=== PATIENT | female | born 1940 | race Caucasian/White ===

== ENCOUNTER 2023-05-29 10:14 | Emergency (ER) | payer MEDICARE ==
[~2023-05-29] VITALS: Ht 160 cm; Wt 87.1 kg
[2023-05-29] MEDS ORDERED: METO100T5 PO (10:24)
[2023-05-29] MEDS ORDERED: NORV5TAB PO (10:24)
[2023-05-29] MEDS ORDERED: AMLO25TA PO (10:25)
[2023-05-29] MEDS ORDERED: LISI20TA37 PO (10:25)
[2023-05-29] MEDS ORDERED: ISOVUE-370 76% 100ML VIAL As Ordered ONE (14:07)
[2023-05-29] MEDS: DIAPER RELIEF PASTE (DESITIN) 60GM TOP SCH (14:15)
[2023-05-29] MEDS ORDERED: D-101000 PO (14:17)
[2023-05-29] MEDS ORDERED: CALC600T60 PO (14:17)
[2023-05-29] MEDS ORDERED: HOME MED LIST COMPLETE! XX SCH (14:20)
[2023-05-29 14:26] LABS: BASO # 0.1 10^3/uL (0.0-0.2); BASO % 0.4 % (0.0-1.0); EOS # 0.1 10^3/uL (0.0-0.5); EOS % 0.7 % (0.0-3.0); HEMATOCRIT 38.2 % (36.0-47.0); HEMOGLOBIN 12.7 g/dl (12.0-15.5); LYMPH # 3.3 10^3/uL (1.5-5.0); LYMPH % 26.7 % (24.0-44.0); MEAN CORPUSCULAR HEMOGLOBIN 29.5 pg (27.0-33.0); MEAN CORPUSCULAR HGB CONC 33.2 g/dl (32.0-36.5); MEAN CORPUSCULAR VOLUME 88.8 fl (80.0-96.0); MONO # 0.8 10^3/uL (0.0-0.8); MONO % 6.6 % (2.0-8.0); NEUTROPHILS % 64.9 % (36.0-66.0); PLATELET COUNT, AUTOMATED 433 10^3/uL (150-450); WHITE BLOOD COUNT 12.3 10^3/uL (4.0-10.0)
[2023-05-29 14:55] LABS: ALBUMIN 3.2 G/DL (3.2-5.2); BILIRUBIN,TOTAL 0.5 MG/DL (0.3-1.2); CALCIUM LEVEL 9.1 MG/DL (8.3-10.6); CREATININE FOR GFR 1.42 MG/DL (0.55-1.30); GLOMERULAR FILTRATION RATE 37.9 (>32); POTASSIUM SERUM 4.5 MMOL/L (3.5-5.1); TOTAL PROTEIN 6.8 G/DL (5.7-8.2)
[2023-05-29] MEDS ORDERED: METR-265 PO (16:09)
[2023-05-29] MEDS ORDERED: CIPR-249 PO (16:09)
[2023-05-29 16:23] VITALS: BP 176/74; TEMP 97.8; O2SAT 96
== END 2023-05-29 16:33 | disposition home or self-care (01) ==
LOC: M ED 10:14
DX: K61.0 Anal abscess (principal); I10 Essential (primary) hypertension
CPT/HCPCS: 74177; 80047; 80053; 85025; 99284; Q9967

== ENCOUNTER 2023-06-05 12:53 | Day surgery (SDC) | payer MEDICARE ==
[~2023-06-05] VITALS: Ht 160 cm; Wt 84.8 kg
[~2023-06-05 12:53] MED LIST: AMLO25TA PO; CALC600T60 PO; CIPR-249 PO; CIPR500T39 PO; D-101000 PO; LISI20TA37 PO; METO100T5 PO; METR-265 PO; NORV5TAB PO; PRAV20TA2 PO
[2023-06-05] MEDS: NS 1,000 ML IV ONE (14:09)
[2023-06-05] MEDS ORDERED: MIDAZOLAM INJ 2MG/2ML VIAL As Ordered ONE (14:43)
[2023-06-05 14:52] VITALS: TEMP 98.5
[2023-06-05 15:11] VITALS: BP 137/68; O2SAT 96
[2023-06-05] MEDS ORDERED: METO1TAB33 PO (21:54)
[2023-06-05] MEDS ORDERED: CALC500T61 PO (21:54)
== END 2023-06-05 15:21 | disposition other institution (70) ==
LOC: M OPP 12:53
PROVIDERS: ATTEND Surgery
DX: K62.89 Other specified diseases of anus and rectum (principal); E86.0 Dehydration; Z79.899 Other long term (current) drug therapy; Z79.2 Long term (current) use of antibiotics

== ENCOUNTER 2023-06-05 15:33 | Inpatient (IN) | payer MEDICARE ==
[~2023-06-05] VITALS: Ht 160 cm; Wt 92.7 kg
[2023-06-05 18:20] LABS: BASO # 0.1 10^3/uL (0.0-0.2); BASO % 0.5 % (0.0-1.0); EOS # 0.1 10^3/uL (0.0-0.5); EOS % 0.8 % (0.0-3.0); HEMATOCRIT 40.8 % (36.0-47.0); HEMOGLOBIN 13.6 g/dl (12.0-15.5); LYMPH # 2.4 10^3/uL (1.5-5.0); LYMPH % 18.6 % (24.0-44.0); MEAN CORPUSCULAR HEMOGLOBIN 29.1 pg (27.0-33.0); MEAN CORPUSCULAR HGB CONC 33.3 g/dl (32.0-36.5); MEAN CORPUSCULAR VOLUME 87.2 fl (80.0-96.0); MONO % 8.2 % (2.0-8.0); NEUTROPHILS % 71.2 % (36.0-66.0); PLATELET COUNT, AUTOMATED 456 10^3/uL (150-450); RED BLOOD COUNT 4.68 10^6/uL (4.00-5.40); WHITE BLOOD COUNT 12.6 10^3/uL (4.0-10.0)
[2023-06-05] MEDS: NS 1,000 ML IV ONE (18:22)
[2023-06-05 19:23] LABS: LIPASE 33 U/L (12-53)
[2023-06-05 19:25] LABS: CPK CREATINE PHOSPHOKINASE 32 U/L (34-145)
[2023-06-05 19:29] LABS: ALBUMIN 2.9 G/DL (3.2-5.2); ALKALINE PHOSPHATASE 43 U/L (46-116); ALT/SGPT 19 U/L (7.0-40); AST/SGOT 19 U/L (<34); BILIRUBIN,DIRECT 0.1 MG/DL (<0.4); BILIRUBIN,TOTAL 0.3 MG/DL (0.3-1.2); BLOOD UREA NITROGEN 41 MG/DL (9-23); CALCIUM LEVEL 8.2 MG/DL (8.3-10.6); CARBON DIOXIDE LEVEL 20 MMOL/L (20-31); CHLORIDE LEVEL 105 MMOL/L (98-107); CK-MB VALUE MASS < 1.0 NG/ML (<3.6); CREATININE FOR GFR 3.54 MG/DL (0.55-1.30); FREE T4 1.16 NG/DL (0.89-1.76); GLOMERULAR FILTRATION RATE 13.2 (>32); GLUCOSE, FASTING 110 MG/DL (74-106); MB/CK RELATIVE INDEX 3.12 (< OR =4); POTASSIUM SERUM 4.2 MMOL/L (3.5-5.1); SODIUM LEVEL 135 MMOL/L (136-145); THYROID STIMULATING HORMONE 4.785 uIU/ML (0.55-4.78); TOTAL PROTEIN 5.8 G/DL (5.7-8.2)
[2023-06-05] MEDS: NS 500 ML IV ONE (20:54)
[2023-06-05] MEDS ORDERED: LR 1,000 ML IV SCH (21:40)
[2023-06-05] MEDS ORDERED: CALC500T61 PO (21:54)
[2023-06-05] MEDS ORDERED: METO1TAB33 PO (21:54)
[2023-06-05] MEDS ORDERED: HOME MED LIST COMPLETE! XX SCH (21:55)
[2023-06-05 23:00] VITALS: BP 155/83; TEMP 98.1; O2SAT 97
[2023-06-06 06:33] VITALS: BP 143/62; TEMP 98.8; O2SAT 96
[2023-06-06 07:37] LABS: BASO # 0.1 10^3/uL (0.0-0.2); BASO % 0.5 % (0.0-1.0); EOS # 0.4 10^3/uL (0.0-0.5); EOS % 2.8 % (0.0-3.0); HEMATOCRIT 39.7 % (36.0-47.0); HEMOGLOBIN 13.1 g/dl (12.0-15.5); LYMPH # 3.9 10^3/uL (1.5-5.0); LYMPH % 25.5 % (24.0-44.0); MEAN CORPUSCULAR HEMOGLOBIN 29.1 pg (27.0-33.0); MEAN CORPUSCULAR VOLUME 88.2 fl (80.0-96.0); MONO # 1.4 10^3/uL (0.0-0.8); MONO % 9.3 % (2.0-8.0); NEUTROPHILS # 9.4 10^3/uL (1.5-8.5); NEUTROPHILS % 61.2 % (36.0-66.0); PLATELET COUNT, AUTOMATED 487 10^3/uL (150-450); WHITE BLOOD COUNT 15.4 10^3/uL (4.0-10.0)
[2023-06-06 07:59] LABS: ALBUMIN 3.1 G/DL (3.2-5.2); BILIRUBIN,TOTAL 0.3 MG/DL (0.3-1.2); CALCIUM LEVEL 9.1 MG/DL (8.3-10.6); CREATININE FOR GFR 3.41 MG/DL (0.55-1.30); GLOMERULAR FILTRATION RATE 13.8 (>32); POTASSIUM SERUM 4.8 MMOL/L (3.5-5.1)
[2023-06-06] MEDS: LACTOBACILLUS ACIDOPHILUS CAP (BACID) PO SCH (08:00)
[2023-06-06] MEDS: LR 1,000 ML IV SCH (08:18)
[2023-06-06 10:35] LABS: PROCALCITONIN 0.16 ng/ml
[2023-06-06 14:00] VITALS: BP 135/72; TEMP 98.1; O2SAT 96
[2023-06-06 19:23] VITALS: BP 163/76; TEMP 98.1; O2SAT 97
[2023-06-06] MEDS: METOPROLOL SUCC (TopROL XL) 100MG *XL* TAB PO SCH (20:43)
[2023-06-06] MEDS: amLODIPine 5 MG TAB PO SCH (20:43)
[2023-06-07 05:10] VITALS: BP 138/61; TEMP 98.6; O2SAT 95
[2023-06-07 07:17] LABS: BASO # 0.1 10^3/uL (0.0-0.2); BASO % 0.7 % (0.0-1.0); EOS # 0.4 10^3/uL (0.0-0.5); EOS % 5.2 % (0.0-3.0); HEMATOCRIT 33.4 % (36.0-47.0); LYMPH # 1.9 10^3/uL (1.5-5.0); LYMPH % 23.8 % (24.0-44.0); MEAN CORPUSCULAR HEMOGLOBIN 29.3 pg (27.0-33.0); MEAN CORPUSCULAR HGB CONC 33.2 g/dl (32.0-36.5); MEAN CORPUSCULAR VOLUME 88.1 fl (80.0-96.0); MONO # 0.8 10^3/uL (0.0-0.8); NEUTROPHILS # 4.8 10^3/uL (1.5-8.5); NEUTROPHILS % 59.4 % (36.0-66.0); RED BLOOD COUNT 3.79 10^6/uL (4.00-5.40); WHITE BLOOD COUNT 8.1 10^3/uL (4.0-10.0)
[2023-06-07 07:20] LABS: HEMOGLOBIN 11.1 g/dl (12.0-15.5); PLATELET COUNT, AUTOMATED 327 10^3/uL (150-450)
[2023-06-07 07:47] LABS: CALCIUM LEVEL 8.2 MG/DL (8.3-10.6); CREATININE FOR GFR 2.82 MG/DL (0.55-1.30); GLOMERULAR FILTRATION RATE 17.2 (>32); POTASSIUM SERUM 3.7 MMOL/L (3.5-5.1)
[2023-06-07] MEDS: DIAPER RELIEF PASTE (DESITIN) 60GM TOP SCH (10:06)
[2023-06-07 15:15] VITALS: BP 156/83; TEMP 98.6; O2SAT 96
[2023-06-07 22:00] VITALS: BP 156/74; TEMP 98.2; O2SAT 96
[2023-06-08 05:44] VITALS: BP 130/53; TEMP 98.1; O2SAT 97
[2023-06-08 07:25] LABS: BASO # 0.1 10^3/uL (0.0-0.2); BASO % 0.7 % (0.0-1.0); EOS # 0.4 10^3/uL (0.0-0.5); HEMATOCRIT 35.5 % (36.0-47.0); HEMOGLOBIN 11.7 g/dl (12.0-15.5); LYMPH # 3.4 10^3/uL (1.5-5.0); LYMPH % 32.9 % (24.0-44.0); MEAN CORPUSCULAR HEMOGLOBIN 28.9 pg (27.0-33.0); MEAN CORPUSCULAR VOLUME 87.7 fl (80.0-96.0); MONO # 0.9 10^3/uL (0.0-0.8); MONO % 8.9 % (2.0-8.0); NEUTROPHILS # 5.5 10^3/uL (1.5-8.5); NEUTROPHILS % 52.6 % (36.0-66.0); PLATELET COUNT, AUTOMATED 329 10^3/uL (150-450); RED BLOOD COUNT 4.05 10^6/uL (4.00-5.40); WHITE BLOOD COUNT 10.4 10^3/uL (4.0-10.0)
[2023-06-08 07:47] LABS: CALCIUM LEVEL 8.4 MG/DL (8.3-10.6); CREATININE FOR GFR 2.37 MG/DL (0.55-1.30); POTASSIUM SERUM 4.1 MMOL/L (3.5-5.1)
[2023-06-08 14:00] VITALS: BP 154/85; TEMP 98.1; O2SAT 96
[2023-06-08 20:30] VITALS: BP 143/68
[2023-06-08 22:00] VITALS: BP 143/68; TEMP 98.6; O2SAT 97
[2023-06-09 05:42] VITALS: BP 118/59; TEMP 98.4; O2SAT 96
[2023-06-09 08:01] LABS: CALCIUM LEVEL 8.1 MG/DL (8.3-10.6); CREATININE FOR GFR 2.13 MG/DL (0.55-1.30); GLOMERULAR FILTRATION RATE 23.7 (>32); POTASSIUM SERUM 3.9 MMOL/L (3.5-5.1)
== END 2023-06-09 14:35 | disposition home health service (06) | DRG 683 ==
LOC: M ED 15:33 → OBSVTOIN 15:34 → M ED INP 15:34 → ENRESERV 22:30 → M MS5PR 22:50
PROVIDERS: ADMIT Internal Medicine; ATTEND Internal Medicine
DX: N17.9 Acute kidney failure, unspecified (principal); K61.1 Rectal abscess; K62.5 Hemorrhage of anus and rectum; E86.0 Dehydration; N18.9 Chronic kidney disease, unspecified; R19.7 Diarrhea, unspecified; I95.1 Orthostatic hypotension; I12.9 Hypertensive chronic kidney disease with stage 1 through stage 4 chronic kidney disease, or unspecified chronic kidney disease; M19.90 Unspecified osteoarthritis, unspecified site; Z79.899 Other long term (current) drug therapy; Z79.2 Long term (current) use of antibiotics; Z11.52 Encounter for screening for COVID-19

== ENCOUNTER 2023-06-14 13:08 | Day surgery (SDC) | payer MEDICARE, MEDICAID ==
[~2023-06-14] VITALS: Ht 160 cm; Wt 83.5 kg
[~2023-06-14 13:08] MED LIST changes: +CALC500T61 PO; +METO1TAB33 PO; +PROB250C PO
[2023-06-14] MEDS ORDERED: MIDAZOLAM INJ 2MG/2ML VIAL As Ordered ONE (13:24)
[2023-06-14] MEDS: NS 1,000 ML IV ONE (13:26)
[2023-06-14 13:42] VITALS: TEMP 98.5
[2023-06-14 13:59] VITALS: BP 154/68; O2SAT 96
== END 2023-06-14 14:11 | disposition home or self-care (01) ==
LOC: M OPP 13:08
PROVIDERS: ATTEND Surgery
DX: K62.89 Other specified diseases of anus and rectum (principal); K56.690 Other partial intestinal obstruction; D49.0 Neoplasm of unspecified behavior of digestive system; Z80.0 Family history of malignant neoplasm of digestive organs; Z79.899 Other long term (current) drug therapy
CPT/HCPCS: 46606; 88305; J2250

== ENCOUNTER → 2023-07-09 | Outpatient (CLI) | payer MEDICARE, MEDICAID | LOC: M ONCM 07:13 | PROVIDERS: ATTEND Dietitian, Registered | DX: C44.520 Squamous cell carcinoma of anal skin (principal); Z71.3 Dietary counseling and surveillance; Z68.31 Body mass index [BMI] 31.0-31.9, adult ==

== ENCOUNTER → 2023-07-12 | Outpatient (CLI) | payer MEDICARE, MEDICAID | LOC: M PLARAD 10:02 | PROVIDERS: ATTEND Specialist | DX: C21.0 Malignant neoplasm of anus, unspecified (principal) ==

== ENCOUNTER 2023-11-26 17:31 | Emergency (ER) | payer MEDICARE, MEDICAID ==
[~2023-11-26] VITALS: Ht 160 cm; Wt 81.6 kg
[2023-11-26] MEDS: LIDOCAINE 2% 5ML JELLY UROJET TOP ONE (18:20)
[2023-11-26] MEDS: NS 1,000 ML IV ONE (19:26)
[2023-11-26 19:34] LABS: BASO % 0.5 % (0.0-1.0); EOS # 0.2 10^3/uL (0.0-0.5); EOS % 2.5 % (0.0-3.0); HEMATOCRIT 30.6 % (36.0-47.0); LYMPH # 1.4 10^3/uL (1.5-5.0); LYMPH % 18.5 % (24.0-44.0); MEAN CORPUSCULAR HEMOGLOBIN 33.7 pg (27.0-33.0); MEAN CORPUSCULAR HGB CONC 32.7 g/dl (32.0-36.5); MONO # 0.9 10^3/uL (0.0-0.8); MONO % 12.1 % (2.0-8.0); NEUTROPHILS # 4.8 10^3/uL (1.5-8.5); PLATELET COUNT, AUTOMATED 172 10^3/uL (150-450); RED BLOOD COUNT 2.97 10^6/uL (4.00-5.40); WHITE BLOOD COUNT 7.5 10^3/uL (4.0-10.0)
[2023-11-26 19:46] LABS: INR 1.02; PARTIAL THROMBOPLASTIN TIME 29.3 SECONDS (24.8-34.2); PROTHROMBIN TIME 13.1 SECONDS (12.5-14.5)
[2023-11-26 20:14] LABS: LIPASE 22 U/L (12-53)
[2023-11-26 20:16] LABS: ALBUMIN 2.6 G/DL (3.2-5.2); ALKALINE PHOSPHATASE 77 U/L (46-116); ALT/SGPT 17 U/L (7.0-40); AST/SGOT 23 U/L (<34); BILIRUBIN,DIRECT < 0.1 MG/DL (<0.4); BILIRUBIN,TOTAL 0.3 MG/DL (0.3-1.2); BLOOD UREA NITROGEN 12 MG/DL (9-23); CALCIUM LEVEL 8.5 MG/DL (8.3-10.6); CARBON DIOXIDE LEVEL 26 MMOL/L (20-31); CHLORIDE LEVEL 106 MMOL/L (98-107); CREATININE FOR GFR 0.77 MG/DL (0.55-1.30); GLOMERULAR FILTRATION RATE > 60.0 (>32); GLUCOSE, FASTING 87 MG/DL (74-106); POTASSIUM SERUM 4.6 MMOL/L (3.5-5.1); SODIUM LEVEL 135 MMOL/L (136-145); TOTAL PROTEIN 5.9 G/DL (5.7-8.2)
[2023-11-26] MEDS ORDERED: ISOVUE-370 76% 100ML VIAL As Ordered ONE (20:25)
[2023-11-26] MEDS ORDERED: DOXY-323 PO (23:24)
[2023-11-26 23:49] VITALS: BP 142/68; TEMP 97.6; O2SAT 95
== END 2023-11-26 23:53 | disposition home or self-care (01) ==
LOC: M ED 17:31
DX: C20 Malignant neoplasm of rectum (principal); K62.89 Other specified diseases of anus and rectum; I10 Essential (primary) hypertension; Z79.899 Other long term (current) drug therapy
CPT/HCPCS: 51703; 74177; 80048; 80076; 81001; 83690; 85025; 85610; 85730; 96360; 96361; 99284; Q9967

== ENCOUNTER → 2023-12-25 | Outpatient (CLI) | payer MEDICARE, MEDICAID ==
[~2023-12-25] MED LIST changes: +DOXY-441 PO; +GASTROGRAFIN SOLUTION 30ML ONE; +ISOVUE-370 76% 100ML VIAL ONE
== END ==
LOC: M PLAIMG 08:22
PROVIDERS: ATTEND Nurse Practitioner Family
DX: C21.0 Malignant neoplasm of anus, unspecified (principal); K80.20 Calculus of gallbladder without cholecystitis without obstruction; K57.90 Diverticulosis of intestine, part unspecified, without perforation or abscess without bleeding; E27.8 Other specified disorders of adrenal gland; J98.11 Atelectasis; R91.1 Solitary pulmonary nodule; Z95.828 Presence of other vascular implants and grafts; I70.0 Atherosclerosis of aorta; K44.9 Diaphragmatic hernia without obstruction or gangrene; M47.814 Spondylosis without myelopathy or radiculopathy, thoracic region; I51.7 Cardiomegaly
CPT/HCPCS: 71260; 74177; Q9963; Q9967

== ENCOUNTER 2024-02-13 13:50 | Emergency (ER) | payer MEDICARE, MEDICAID ==
[~2024-02-13] VITALS: Ht 160 cm; Wt 81.8 kg
[~2024-02-13 13:50] MED LIST changes: -GASTROGRAFIN SOLUTION 30ML ONE; -ISOVUE-370 76% 100ML VIAL ONE
[2024-02-13] MEDS ORDERED: ISOVUE-370 76% 100ML VIAL As Ordered ONE (14:13)
[2024-02-13 14:42] LABS: BASO % 0.5 % (0.0-1.0); EOS # 0.1 10^3/uL (0.0-0.5); HEMATOCRIT 33.9 % (36.0-47.0); LYMPH # 1.4 10^3/uL (1.5-5.0); MEAN CORPUSCULAR HEMOGLOBIN 33.1 pg (27.0-33.0); MEAN CORPUSCULAR HGB CONC 32.4 g/dl (32.0-36.5); MEAN CORPUSCULAR VOLUME 102.1 fl (80.0-96.0); MONO # 0.8 10^3/uL (0.0-0.8); MONO % 9.8 % (2.0-8.0); NEUTROPHILS % 71.1 % (36.0-66.0); PLATELET COUNT, AUTOMATED 224 10^3/uL (150-450); RED BLOOD COUNT 3.32 10^6/uL (4.00-5.40); WHITE BLOOD COUNT 8.4 10^3/uL (4.0-10.0)
[2024-02-13 14:58] LABS: INR 1.3; PARTIAL THROMBOPLASTIN TIME 36.5 SECONDS (24.8-34.2); PROTHROMBIN TIME 16.5 SECONDS (12.5-14.5)
[2024-02-13 15:12] LABS: CALCIUM LEVEL 9.2 MG/DL (8.3-10.6); CREATININE FOR GFR 1.07 MG/DL (0.55-1.30); GLOMERULAR FILTRATION RATE 52.4 (>32); POTASSIUM SERUM 4.1 MMOL/L (3.5-5.1)
[2024-02-13] MEDS ORDERED: ATOR80TA59 PO (17:04)
[2024-02-13] MEDS ORDERED: ELIQ5TAB PO (17:04)
[2024-02-13] MEDS ORDERED: HOME MED LIST COMPLETE! XX SCH (17:05)
[2024-02-13] MEDS: APIXABAN 5 MG TAB (ELIQUIS) PO ONE (17:55)
[2024-02-14 06:46] VITALS: BP 145/65; TEMP 97.4; O2SAT 94
== END 2024-02-14 07:02 | disposition home or self-care (01) ==
LOC: M ED 13:50
DX: G45.9 Transient cerebral ischemic attack, unspecified (principal); I10 Essential (primary) hypertension; Z86.73 Personal history of transient ischemic attack (TIA), and cerebral infarction without residual deficits; Z79.899 Other long term (current) drug therapy
CPT/HCPCS: 70450; 70496; 70498; 71045; 80047; 80048; 85025; 85610; 85730; 86850; 86900; 86901; 93005; 93041; 94760; 99285; Q9967

== ENCOUNTER → 2024-03-24 | Outpatient (REF) | payer MEDICARE, MEDICAID ==
[~2024-03-24] MED LIST changes: +ATOR80TA59 PO; +ELIQ5TAB PO
== END ==
LOC: M LAB REF 13:38
PROVIDERS: ATTEND Surgery
DX: L85.9 Epidermal thickening, unspecified (principal)

== ENCOUNTER 2024-06-18 12:36 | Emergency (ER) | payer MEDICARE, MEDICAID ==
[~2024-06-18] VITALS: Ht 160 cm; Wt 77.3 kg
[2024-06-18 12:39] VITALS: TEMP 97.7
[2024-06-18] MEDS ORDERED: PRAV20TA2 (12:45)
[2024-06-18] MEDS ORDERED: CHLO125TA (12:45)
[2024-06-18] MEDS ORDERED: LOSA50TA28 (12:45)
[2024-06-18] MEDS ORDERED: SPIR-10 (12:45)
[2024-06-18] MEDS ORDERED: FARX1TAB5 (12:45)
[2024-06-18 13:38] LABS: BASO % 0.4 % (0.0-1.0); EOS % 0.1 % (0.0-3.0); HEMATOCRIT 44.4 % (36.0-47.0); HEMOGLOBIN 14.4 g/dl (12.0-15.5); LYMPH # 0.9 10^3/uL (1.5-5.0); LYMPH % 11.6 % (24.0-44.0); MEAN CORPUSCULAR HEMOGLOBIN 30.8 pg (27.0-33.0); MEAN CORPUSCULAR HGB CONC 32.4 g/dl (32.0-36.5); MEAN CORPUSCULAR VOLUME 95.1 fl (80.0-96.0); MONO # 0.3 10^3/uL (0.0-0.8); NEUTROPHILS # 6.7 10^3/uL (1.5-8.5); NEUTROPHILS % 83.4 % (36.0-66.0); PLATELET COUNT, AUTOMATED 271 10^3/uL (150-450); RED BLOOD COUNT 4.67 10^6/uL (4.00-5.40)
[2024-06-18 14:00] LABS: ALBUMIN 3.7 G/DL (3.2-5.2); BILIRUBIN,DIRECT 0.1 MG/DL (<0.4); BILIRUBIN,TOTAL 0.4 MG/DL (0.3-1.2); TOTAL PROTEIN 7.6 G/DL (5.7-8.2)
[2024-06-18 15:05] LABS: KETONE, URINE AUTO RFX NEGATIVE (NEGATIVE); MUCUS, URINE RFX SMALL (NEGATIVE); NITRITE, URINE AUTO RFX NEGATIVE (NEGATIVE); RBC, URINE AUTO RFX 6 /HPF (0-3); SQUAM EPITHELIAL CELL UR AURFX 1 /HPF (0-6); WBC, URINE AUTO RFX 1 /HPF (0-3)
[2024-06-18 15:06] LABS: LEUKOCYTE ESTERASE UR AUTO RFX TRACE (NEGATIVE)
[2024-06-18] MEDS ORDERED: MIRA3350 PO (15:38)
[2024-06-18] MEDS ORDERED: GLYC1SUP38 PR (15:38)
[2024-06-18 16:15] VITALS: BP 168/83; O2SAT 94
== END 2024-06-18 16:28 | disposition home or self-care (01) ==
LOC: M ED 12:36
DX: R42 Dizziness and giddiness (principal); K59.00 Constipation, unspecified; I12.9 Hypertensive chronic kidney disease with stage 1 through stage 4 chronic kidney disease, or unspecified chronic kidney disease; Z85.048 Personal history of other malignant neoplasm of rectum, rectosigmoid junction, and anus; Z86.73 Personal history of transient ischemic attack (TIA), and cerebral infarction without residual deficits; Z79.01 Long term (current) use of anticoagulants; Z79.899 Other long term (current) drug therapy